=== PATIENT | female | born 1965 ===

== ENCOUNTER → 2017-08-16 | Outpatient (CLI) | payer OTHER ==
--- NOTE | 2017-08-16 17:50 | KCIC ---
Bilateral digital screening mammograms: Reason for examination: Routine screening. Comparison is made to previous studies dated 08/13/2016 and 07/05/2015. Interpretation was made with the benefit of CAD. The skin and nipples show no abnormalities. No abnormal axillary lymph nodes are seen. The breast parenchyma is extremely dense. (Breast density: Category D) There continues to be nodularity to the breast parenchyma consistent with history of cysts. There are additional nodular density seen in the right breast which also likely represent cysts. Further evaluation with ultrasound can be performed to verify cystic nature of these nodules. There are no suspicious calcifications or architectural distortion. Scattered punctate benign appearing calcifications are again seen. Impression: Nodularity to the breast bilaterally with new nodules evident in the right breast. Recommend further evaluation with ultrasound. Your patient's mammogram demonstrates that she has dense breast tissue (breast density category C or D), which could hide abnormalities, and if she has other risk factors for breast cancer that have been identified, she might benefit from supplemental screening tests that may be suggested by you as her ordering physician. Dense breast tissue, in and of itself, is a relatively common condition. Therefore, this information is not provided to cause undue concern, but rather to raise your awareness and to promote discussion with your patient regarding the presence of other risk factors, in addition to dense breast tissue. Your patient's mammography results will be sent to her. BI-RADS Category 0: Incomplete. Ultrasound follow-up is recommended. "Our facility is accredited by the [employer] Mammography [employer]." This patient's information has been entered into a reminder system for the patient to be notified with the results of her examination and a target date for the next mammogram. Electronically signed by: Sparkle Cano MD (08/16/2017 5:47 PM) [place] [id number]
== END | disposition home or self-care (01) ==
LOC: KCIC MAMMO 10:28
PROVIDERS: ATTEND Obstetrics & Gynecology
DX: Z12.31 Encounter for screening mammogram for malignant neoplasm of breast (principal)
CPT/HCPCS: G0202; 77067

== ENCOUNTER → 2017-08-23 | Outpatient (CLI) | payer OTHER ==
--- NOTE | 2017-08-23 08:56 | KCIC ---
Right breast ultrasound: Reason for examination: Nodular densities at screening mammogram. Comparison is made to mammographic exam dated 08/16/2017. Right whole breast ultrasound including evaluation of all 4 quadrants and the retroareolar region of the right breast was performed. There are circumscribed nodules consistent with cysts at the 12:00 position 3 cm from the nipple, at the 1:00 position 6 cm from the nipple, at the 3:00 position 3 cm from the nipple, 6:00 position 4 cm from the nipple and at the 11:00 position 6 cm from the nipple which are consistent with cysts. The largest is located at the 3:00 position and measures 2.3 cm in size. In the 9:00 position 3.5 cm from the nipple, there is a circumscribed lesion measuring 1.3 cm in greatest dimension which shows some posterior acoustic enhancement. The appearance suggests a fibroadenoma or possibly complicated cysts. No suspicious-appearing lesions are seen. IMPRESSION: Multiple circumscribed lesions consistent with cysts. 1.3 cm in hypoechoic nodule which may represent a complicated cyst or fibroadenoma. Recommend reevaluation with ultrasound in 3 months. BI-RADS Category 3: Probably Benign. "Our facility is accredited by the [employer] Mammography [employer]." This patient's information has been entered into a reminder system for the patient to be notified with the results of her examination and a target date for the next mammogram. Electronically signed by: Sparkle Cano MD (08/23/2017 8:52 AM) [id number]
== END | disposition home or self-care (01) ==
LOC: KCIC US 07:47
PROVIDERS: ATTEND Obstetrics & Gynecology
DX: N63.10 Unspecified lump in the right breast, unspecified quadrant (principal)
CPT/HCPCS: 76641